=== PATIENT | female | born 1975 ===

== ENCOUNTER 2023-10-19 05:40 | Day surgery (SDC) | payer OTHER ==
[~2023-10-19] VITALS: Ht 162.6 cm; Wt 97.5 kg
[~2023-10-19 05:40] MED LIST: LIPITOR20 MG PO; METFORMIN HCL500 M3 PO; ZESTRIL20 MG PO
[2023-10-19] MEDS ORDERED: CEFAZOLIN SODIUM 1,000 MG VIAL ONE (09:55)
[2023-10-19] MEDS ORDERED: CEFAZOLIN SODIUM 1,000 MG VIAL IV ONE (10:30)
== END 2023-10-19 14:15 | disposition home or self-care (01) ==
LOC: CIR.AMB 05:40
PROVIDERS: ATTEND Surgery Surgery of the Hand
DX: M65.841 Other synovitis and tenosynovitis, right hand (principal); E11.9 Type 2 diabetes mellitus without complications; I10 Essential (primary) hypertension; Z20.822 Contact with and (suspected) exposure to COVID-19; E78.5 Hyperlipidemia, unspecified